=== PATIENT | male | born 1945 | race Caucasian/White ===

== ENCOUNTER → 2018-05-03 | Outpatient (CLI) | payer OTHER ==
[~2018-05-03] MED LIST: ACETAMINOPHEN325 M1 PO; ALLOPURINOL 10100 M1 PO; AMBIEN 10 MG TA10 MG PO; AMIODARONE PO; ANTACID650 MG PO; ASPIRIN325 PO; ATORVASTATIN CA20 MG PO; CELEXA40 MG PO; CENTRUM SILVER1 EAC4 PO; CLORAZEPATE DI7.5 M2; CLOTRIMAZOLE AF30 GM TP; COLACE 100 MG100 MG PO; CORTIZONE 1028 GM TP; COUMADIN 5 MG TA5 M1 PO; DIOVAN320 MG PO; DOXYCYCLINE 10100 MG PO; ENOXAPARIN30 MG/0.3 SQ; FISH OIL300 MG PO; FLOMAX PO; FLOMAX0.4 MG PO; FUROSEMIDE 40 M40 M1 PO; HYDROXYZINE HCL25 M1 PO; K-DUR 20 MEQ T20 MEQ PO; LAMOTRIGINE ODT25 MG PO; LASIX 40 MG TAB40 M2 PO; LASIX 40 MG TAB40 MG PO; LIORESAL 10 MG10 MG PO; LOPRESSOR PO; METHYLPREDNISOLO4 M1 PO; MIRAPEX0.125 MG PO; NORCO 5-325 TA1 EAC1 PO; NORCO 5-325 TA1 EACH PO; PACERONE100 MG PO; POTASSIUM20; POTASSIUM20 PO; PREDNISONE 10 M10 MG PO; PROTONIX40 M1 PO; RANITIDINE 150150 MG PO; SENOKOT-S1 TA1 PO; STOOL SOFTENER1 EAC2 PO; TOPROL XL100 MG PO; VITAMIN D31000 UNIT PO; XANAX 0.5 MG0.5 M1; ZANTAC 150MG T150 MG PO; ZOCOR 20 MG TAB20 M1 PO
[2018-05-03 11:59] LABS: DIRECT BILIRUBIN 0.1 mg/dL (<0.1-0.3); TOTAL BILIRUBIN 0.4 mg/dL (<0.1-1.0); TOTAL PROTEIN 6.4 g/dL (6.4-8.2)
== END ==
LOC: M.LAB 10:53
PROVIDERS: Internal Medicine Cardiovascular Disease
DX: J84.10 Pulmonary fibrosis, unspecified (principal); Z79.899 Other long term (current) drug therapy

== ENCOUNTER → 2018-06-01 | Outpatient (CLI) | payer OTHER ==
--- NOTE | 2018-06-01 17:43 | 2DMMODE ---
[place] [address] 2 D/M-MODE ECHOCARDIOGRAM Name: SHUBHAMSILVIA Room: [facility]#: [id number] Admission: 06/01/18 Attend Phys: Barrera Ramires, Discharge: Date of : 41 Date of Service: 06/01/18 1742 Report #: [id number] THIS REPORT FOR: //name// APPROVED REPORT Study performed: 06/01/2018 09:47:12 EXAM: Comprehensive 2D, Doppler, and color-flow Echocardiogram Patient Location: Out-Patient Status: routine BSA: 2.52 HR: 68 bpm BP: 180/70 mmHg Other Information Study Quality: Fair Indications Cardiomyopathy 2D Dimensions IVSd: 13.93 (7-11mm) LVOT Diam: 20.11 (18-24mm) LVDd: 51.99 mm PWd: 12.37 (7-11mm) Ascending Ao: 26.62 (22-36mm) LVDs: 28.73 (25-40mm) Aortic Root: 27.55 mm Volumes Left Atrial Volume (Systole) LA ESV Index: 29.90 mL/m2 Aortic Valve AoV Peak Amauri.: 1.61 m/s AO Peak Gr.: 10.31 mmHg LVOT Max P.29 mmHg AO Mean Gr.: 5.69 mmHg LVOT Mean P.80 mmHg LVOT Max V: 1.25 m/s AO V2 VTI: 37.08 cm LVOT Mean V: 0.76 m/s DAVID (VTI): 2.61 cm2 LVOT V1 VTI: 30.47 cm Mitral Valve MV Peak Gr.: 6.30 mmHg MV Mean Gr.: 1.81 mmHg E/A Ratio: 2.34 MV Decel. Time: 221.70 ms MV E Max Amauri.: 1.18 m/[place] [address] 2 D/M-MODE ECHOCARDIOGRAM Name: SILVIA JALLOH Room: [facility]#: [id number] Admission: 06/01/18 Attend Phys: Barrera Ramires, Discharge: Date of : 41 Date of Service: 06/01/18 1742 Report #: [id number] MV PHT: 64.29 ms MVA (PHT): 3.42 cm2 TDI E/Lateral E': 11.80 E/Medial E': 13.11 Medial E' Amauri.: 0.09 m/s Lateral E' Amauri.: 0.10 m/s Pulmonary Valve PV Peak Amauri.: 1.17 m/s PV Peak Gr.: 5.51 mmHg Tricuspid Valve RAP Estimate: 5.00 mmHg TR Peak Gr.: 38.35 mmHg RVSP: 43.35 mmHg PA Pressure: 43.35 mmHg Left Ventricle The left ventricle is normal size. There is normal LV segmental wall motion. Mild concentric left ventricular hypertrophy. Left ventricular systolic function is normal. LVEF is 55-60%. Transmitral Doppler flow pattern suggests restrictive physiology. Right Ventricle The right ventricle is normal size. The right ventricular systolic function is normal. Atria Left atrium is moderately dilated. The right atrium size is normal. Aortic Valve The Aortic valve is sclerotic. No aortic regurgitation is present. There is no aortic valvular stenosis. Mitral Valve There is mild mitral annular calcification. Mild mitral regurgitation. No evidence of mitral valve stenosis. Tricuspid Valve The tricuspid valve is normal in structure. Mild to moderate tricuspid regurgitation. Moderate pulmonary hypertension. Pulmonic Valve The pulmonary valve is normal in structure. There is no pulmonic [place] [address] 2 D/M-MODE ECHOCARDIOGRAM Name: SILVIA JALLOH Room: [facility]#: [id number] Admission: 06/01/18 Attend Phys: Barrera Ramires, Discharge: Date of : 41 Date of Service: 06/01/18 1742 Report #: [id number] Great Vessels The aortic root is normal in size. IVC is not well visualized. Pericardium There is no pericardial effusion. <Conclusion> The left ventricle is normal size. Mild concentric left ventricular hypertrophy. Left ventricular systolic function is normal. LVEF is 55-60%. Transmitral Doppler flow pattern suggests restrictive physiology. Left atrium is moderately dilated. The Aortic valve is sclerotic. There is no aortic valvular stenosis. There is mild mitral annular calcification. Mild mitral regurgitation. Mild to moderate tricuspid regurgitation. Moderate pulmonary hypertension. <ELECTRONICALLY SIGNED> By: Barrera Ramires MD, FACC 06/01/181741 41 41 Barrera Ramires MD, FACC /INF
== END ==
LOC: M.CRD 09:43
DX: I08.1 Rheumatic disorders of both mitral and tricuspid valves (principal); I27.20 Pulmonary hypertension, unspecified; I42.8 Other cardiomyopathies

== ENCOUNTER → 2019-01-03 | Outpatient (CLI) | payer OTHER ==
[2019-01-03 11:50] LABS: ALBUMIN 3.2 g/dL (3.4-5.0); DIRECT BILIRUBIN 0.2 mg/dL (<0.1-0.3); TOTAL BILIRUBIN 0.6 mg/dL (<0.1-1.0); TOTAL PROTEIN 6.3 g/dL (6.4-8.2)
== END ==
LOC: M.LAB 10:07
PROVIDERS: Internal Medicine Cardiovascular Disease
DX: J84.10 Pulmonary fibrosis, unspecified (principal); J98.4 Other disorders of lung; Z79.899 Other long term (current) drug therapy; Z88.8 Allergy status to other drugs, medicaments and biological substances; Z91.040 Latex allergy status

== ENCOUNTER → 2019-04-18 | Outpatient (CLI) | payer OTHER | LOC: M.RAD 10:38 | DX: J84.9 Interstitial pulmonary disease, unspecified (principal); J84.10 Pulmonary fibrosis, unspecified; Z79.899 Other long term (current) drug therapy; Z88.8 Allergy status to other drugs, medicaments and biological substances; Z91.040 Latex allergy status ==

== ENCOUNTER 2019-05-11 11:32 | Emergency (ER) | payer OTHER ==
[~2019-05-11] VITALS: Ht 182.9 cm; Wt 136.1 kg
[2019-05-11 14:51] LABS: INFLUENZA A ANTIGEN Negative (Negative); INFLUENZA B ANTIGEN Negative (Negative)
[2019-05-11] MEDS ORDERED: KEFLEX500 M1 PO (15:15)
[2019-05-11] MEDS ORDERED: KEFLEX500 M2 PO (15:18)
[2019-05-11 15:28] VITALS: BP 143/57
== END 2019-05-11 15:29 | disposition home or self-care (01) ==
LOC: M.ERS 11:32
PROVIDERS: Emergency Medicine
DX: J40 Bronchitis, not specified as acute or chronic (principal); I50.9 Heart failure, unspecified; N18.9 Chronic kidney disease, unspecified; Z88.5 Allergy status to narcotic agent; Z99.2 Dependence on renal dialysis

== ENCOUNTER → 2019-06-19 | Outpatient (CLI) | payer OTHER ==
[~2019-06-19] MED LIST changes: +KEFLEX500 M1 PO; +KEFLEX500 M2 PO
--- NOTE | ~2019-06-19 | PF ---
[address] [address] PULMONARY FUNCTION REPORT Name: SILVIA JALLOH Room: [facility]#: [id number] Admission: 06/19/19 Attend Phys: JULIANNE Maradiaga Discharge: Date of : 41 Report #: [id number] THIS REPORT FOR: //name// CC: Byron Cervantes DATE OF SERVICE: 06/26/2019 Forced vital capacity is 2.61, 67% predicted. FEV1 is 1.82, 55% predicted. FEV1/FVC ratio is 70. Post-bronchodilator value of FEV1 is 1.87, yielding 3% improvement. Post-bronchodilator value of forced vital capacity is 2.71, yielding 4% improvement. Total lung capacity is 5.10, 68% predicted. Diffusion capacity is 13.9, 49% predicted. IMPRESSION: Moderate airflow limitation with no significant bronchodilator effect, diminished total lung capacity consistent with possible restrictive lung disease, and diminished diffusion capacity. Further evaluation for possible restrictive lung disease and CT scan if clinically warranted is recommended. By: [id number] Dickinson MD /nathan
== END ==
LOC: M.PUL 09:49
DX: J84.9 Interstitial pulmonary disease, unspecified (principal)

== ENCOUNTER 2019-08-03 16:23 | Inpatient (IN) | payer OTHER ==
[~2019-08-03] VITALS: Ht 182.9 cm; Wt 133.1 kg
[~2019-08-03 16:23] MED LIST changes: -VITAMIN D31000 UNIT PO; +VITAMIN D32000 UNI2 PO
[2019-08-03 16:31] VITALS: BP 173/70
[2019-08-03 17:22] LABS: ABSOLUTE BASOPHILS 0.1 thou/uL (0.0-0.2); ABSOLUTE EOSINOPHILS 0.2 thou/uL (0.0-0.7); ABSOLUTE LYMPHOCYTES 0.5 thou/uL (0.8-5.3); ABSOLUTE MONOCYTES 0.6 thou/uL (0.0-1.2); ABSOLUTE NEUTROPHILS 4.5 thou/uL (1.6-8.1); EOSINOPHILS 3.4 %; HEMATOCRIT 25.9 % (42.0-52.0); HEMOGLOBIN 8.7 gm/dL (14.0-18.0); LYMPHOCYTES 7.9 %; MCH 30.2 pg (26.0-34.0); MCHC 33.7 g/dL (28.0-37.0); MCV 89.4 fL (80.0-100.0); MONOCYTES 10.7 %; MPV 8.4 fl. (7.2-11.1); NUCLEATED RBCS 0 /100WBC; PLATELET COUNT* 206 thou/uL (150-400); RDW-CV 17.7 % (10.5-14.5); WBC 5.9 thou/uL (4.0-11.0)
[2019-08-03 17:41] LABS: INFLUENZA A ANTIGEN Negative (Negative); INFLUENZA B ANTIGEN Negative (Negative)
[2019-08-03 17:45] LABS: CREATININE 2.7 mg/dL (0.6-1.3); POTASSIUM 4.2 mmol/L (3.5-5.1)
[2019-08-03 17:50] LABS: ALBUMIN 2.5 g/dL (3.4-5.0); TOTAL BILIRUBIN 1.1 mg/dL (<0.1-1.0); TOTAL PROTEIN 6.4 g/dL (6.4-8.2)
--- NOTE | 2019-08-03 21:32 | NUR ---
CALLED THE [facility] DEPARTMENT AND SPOKE TO FITO LEYVA, RESEARCH RAKING MACHINE OPERATOR ABOUT PT SILVIA JALLOH AND HIS SYMPTOMS. AT THIS TIME HE DOES NOT QUALIFY TO HAVE THE HEALTH DEPARTMENT RECEIVE HIS TEST RESULTS. HE SCREENED NEGATIVE FOR A FEVER AND THAT DISQUALIFIED HIM.
[2019-08-03 22:10] VITALS: BP 183/64
[2019-08-03 22:15] VITALS: BP 184/84
[2019-08-04 00:15] VITALS: BP 189/77
[2019-08-04] MEDS ORDERED: SODIUM BICARBO650 M3 PO (03:10)
[2019-08-04] MEDS ORDERED: RANITIDINE 150150 M1 PO (03:11)
[2019-08-04] MEDS ORDERED: IRON325 M1 PO (03:11)
[2019-08-04] MEDS ORDERED: COUMADIN7.5 MG PO (03:14)
[2019-08-04 04:00] VITALS: BP 174/66
--- NOTE | 2019-08-04 06:25 | NUR ---
RECEIVED PT FROM ED AT APPROX 2210 PER CART. PT IS AWAKE AND ORIENTED X4. PODIATRIC PHYSICIAN IN PLACE-TRACING SR. BP ELEVATED, SEE CHARTING-HYDRALAZINE GIVEN PER JUL.BP RETAKEN-159/61. PT IS PLACED ON ISOLATION-COVID 19 RESULT PENDING. PT IS ORIENTED ON THE ROOM SET UP AND ON THE USE OF CALL LIGHT. HOURLY ROUNDING DONE FOR SAFETY. CALL LIGHT WITHIN REACH. HIGH FALL PRECAUTIONS IN PLACE. WCTM
[2019-08-04 08:05] VITALS: BP 160/70
--- NOTE | 2019-08-04 10:39 | EKG ---
[place] [address] ELECTROCARDIOGRAM REPORT Name: SILVIA JALLOH Room: [place] [address] ADM IN ..#: [id number] Admission: 08/03/19 Attend Phys: Jasen Hernandez Discharge: Date of : 41 Date of Service: 08/03/19 1710 Report #: [id number] THIS REPORT FOR: //name// [facility] ED Test Date: 2019-08-03 Test Time: 17:10:21 Pat Name: SILVIA JALLOH Department: Room: [facility] Gender: M Benefit Authorizer: KF : [id number] Requested By: Fariha Mcgowan Order Number: [id number] MD: Scooter Bustos Measurements Intervals [place] Rate: 59 P: 51 ME: 180 QRS: 13 QRSD: 95 T: 52 QT: 480 QTc: 476 Interpretive Statements Sinus rhythm low voltage septal infarct, age indeterminate Compared to ECG 08/22/2016 14:47:40 Myocardial infarct finding now present Electronically Signed On 08-04-2019 10:37:45 CDT by Scooter Bustos [email or web address] <ELECTRONICALLY SIGNED> By: Scooter Bustos MD, FACC 08/04/19 1037 1710 1710 Scooter Bustos MD, [facility] /EPI
[2019-08-04 11:33] LABS: % SATURATION 7 % (20-39); IRON 20 ug/dL (50-175)
--- NOTE | 2019-08-04 13:57 | NUR ---
ASSUMED CARE OF PT AT 0730. PT RESTING IN BED WAITING FOR BREAKFAST. A&0X4, DENIES ANY PAIN OR SHORTNESS OF BREATH AT THIS TIME. PT HAS PRODUCTIVE COUGH- NOT OBSERVED. WHEEZES NOTED. ON RA SAT UPPER 90'S. TRACING SR ON THE HAND KNITTER. ON ENHANCED ISOLATION PRECAUTIONS TO RULE OUT ON COVID. PT UP SBA IN ROOM WITH CANE. NEPHROLOGY CONSULT ORDERED TODAY PER DR HAMMOND REGARDING SADIE. EDEMA NOTED TO BILATERAL LE'S. PT GOAL FOR TODAY IS AWAIT LAB RESULTS, MAINTAIN SBP LESS THAN 160 AND NEPHRO CONSULT. AM ASSESSMENT CHARTED. MEDICATIONS PER JUL. PT REPOSITIONS SELF. HOURLY ROUNDING OBSERVED. BED IN LOW POSITION. CALL LIGHT WITHIN REACH. WILL CONTINUE PLAN OF CARE.
[2019-08-04 15:53] VITALS: BP 176/64
--- NOTE | 2019-08-04 16:04 | NUR ---
cm discussed d/c plan w/pt's spouse. pt lives at home w/spouse and daughter and son in law. pt has walker and cane. pt has hx w/[facility]NA and [facility]. pt is not activce, but independent w/adls. pt has good support system from family. cm to cont to follow.
--- NOTE | 2019-08-04 17:57 | NUR ---
NO ACUTE CHANGES THROUGHOUT SHIFT. REFER TO CHARTING, AWAITING COVID RESULTS. NEPHRO CONSULT IN PLACE. PT DENIES ANY PAIN OR SHORTNESS OF BREATH. CONTINUES TO TRACE SR ON THE CONTENT MANAGEMENT SPECIALIST. ON RA SAT UPPER 90'S. UP WITH SBA AND CANE TO BATHROOM. CARDIOLOGY CONSULTED FOR DIASTOLIC HEART FAILURE- LOSARTAN ADDED PER DR CHEN. REFER TO EMAR. IN ENHANCED ISOLATION. MEDICATIONS PER JUL. PT REPOSITIONS SELF. HOURLY ROUNDING OBSERVED. BED IN LOW POSITION. CALL LIGHT WITHIN REACH, WILL CONTINUE PLAN OF CARE.
[2019-08-04] MEDS ORDERED: COZAAR 25 MG TA25 M1 PO (18:24)
[2019-08-04] MEDS ORDERED: VITAMIN D22000 UNIT PO (18:26)
[2019-08-04 19:04] VITALS: BP 153/55
[2019-08-04 20:00] VITALS: BP 157/76
[2019-08-05] VITALS: BP 154/78
[2019-08-05 04:00] VITALS: BP 149/50
[2019-08-05 06:00] LABS: CALCIUM 8.1 mg/dL (8.5-10.1); CREATININE 2.9 mg/dL (0.6-1.3); POTASSIUM 4.1 mmol/L (3.5-5.1)
[2019-08-05 06:02] LABS: INR 1.7; PROTIME 17.1 Seconds (9.20-11.50)
--- NOTE | 2019-08-05 06:38 | NUR ---
ASSUMED PT CARE AT APPROX 1930. PT IS AWAKE AND ORIENTED X4. SAUSAGE MEAT TRIMMER IN PLACE TRACING SR/SB. ASSESSMENT DONE AND CHARTED. NO ACUTE CHANGES OVERNIGHT. CALL LIGHT WITHIN REACH, HOURLY ROUNDING DONE FOR PT SAFETY. FALL PRECAUTIONS IN PLACE.
[2019-08-05 08:00] VITALS: BP 143/48
--- NOTE | 2019-08-05 12:51 | NUR ---
ASSUMED CARE OF PT AT 0730. PT RESTING IN BED, A&OX4, ON RA, SB ON MONITOR. PT IN ENHANCED PRECAUTIONS STILL PENDING COVID RESULTS, PT HAD CHEST XR THIS MORNING SHOWING PNEUMONIA. DR PEREZ NOTIFIED. ORDERS RECEIVED FOR ANTIBIOTICS. REFER TO EMAR. PT DENIES ANY PAIN OR SHORTNESS OF BREATH. PT GETS UP W/ CANE. PT STATES HASN'T HAD BM IN T-3, MEDS GIVEN PER EMAR. NEPHROLOGY SAW PT ORDERS RECEIVED FOR LABS IN AM AND MED CHANGES. AM ASSESSMENT CHARTED, PT REPOSITIONS SELF, HOURLY ROUNDING OBSERVED, BED IN LOW POSITION, CALL LIGHT W/IN REACH, WILL CONTINUE POC.
[2019-08-05 15:30] VITALS: BP 132/52
[2019-08-05 20:00] VITALS: BP 140/46
[2019-08-06] VITALS: BP 142/51
[2019-08-06 04:00] VITALS: BP 149/60
[2019-08-06 04:39] LABS: HEMATOCRIT 25.9 % (42.0-52.0); HEMOGLOBIN 8.6 gm/dL (14.0-18.0); MCHC 33.2 g/dL (28.0-37.0); MCV 90.2 fL (80.0-100.0); RBC 2.88 mil/uL (4.50-6.00); RDW-CV 17.5 % (10.5-14.5); WBC 6.3 thou/uL (4.0-11.0)
[2019-08-06 04:50] LABS: INR 1.7; PROTIME 17.3 Seconds (9.20-11.50)
[2019-08-06 04:55] LABS: ALBUMIN 2.3 g/dL (3.4-5.0); CALCIUM 7.9 mg/dL (8.5-10.1); MAGNESIUM 2.2 mg/dL (1.8-2.4); POTASSIUM 4.1 mmol/L (3.5-5.1); TOTAL BILIRUBIN 0.7 mg/dL (<0.1-1.0); TOTAL PROTEIN 6.1 g/dL (6.4-8.2)
--- NOTE | 2019-08-06 06:14 | NUR ---
ASSUMED PT CARE AT APPROX 1930. PT IS AWAKE AND ORIENTED X4. AIR REDUCTION EQUIPMENT OPERATOR IS TRACING SB,PT REMAINED ASYMPTOMATIC. ASSESSMENT DONE AND CHARTED. NO ACUTE CHANGES OVERNIGHT. CALL LIGHT WITHIN REACH. FALL PREACUTIONS IN PLACE. COVID 19 RESULT STILL PENDING.
[2019-08-06 08:00] VITALS: BP 149/53
--- NOTE | 2019-08-06 08:13 | CON ---
[address] [address] CONSULTATION Name: SILVIA JALLOH Room: [address] IN .R.#: [id number] Admission: 08/03/19 Attend Phys: Kristina Victor Discharge: Date of : 41 Report #: [id number] THIS REPORT FOR: //name// cc: Byron Rojas Chad W. DO ~ THIS REPORT FOR: //name// CC: Byron Hernandez DATE OF SERVICE: 08/05/2019 NEPHROLOGY CONSULTATION REFERRING PHYSICIAN: Dr. Hernandez. REASON FOR NEPHROLOGY CONSULTATION: Chronic kidney disease and the patient came in with shortness of breath. CHIEF COMPLAINT: Shortness of breath. HISTORY OF PRESENT ILLNESS: This is a 74-year-old male with past medical history of chronic kidney disease stage 4. His exact baseline creatinine is not known, but he was on dialysis for only a couple of sessions in 2016 and he follows with Dr. Haile and his creatinine in 2017, has been anywhere between 2.6-3 came in because he was experiencing shortness of breath for a few days with some cough and expectoration. He does take Lasix at home, Dr. Haile stop his potassium according to the patient and he does take losartan at home as well. He does not report any new weight gain. His breathing is better today. He received one dose of Lasix yesterday as well and he is being ruled out for COVID-19 as well. ALLERGIES: OXYCODONE, MORPHINE, AND TAPE. REVIEW OF SYSTEMS: As mentioned in history of present illness, otherwise 10-point review of systems are negative. PAST MEDICAL HISTORY: Includes chronic diastolic congestive heart failure in 05/2018. His ejection fraction was 55-60% with moderate pulmonary hypertension, perforated colon, bilateral knee replacement, low back pain, and peripheral vascular disease. FAMILY HISTORY: Noncontributory. SOCIAL HISTORY: Does not smoke or take alcohol or use illicit drugs. [place] [address] CONSULTATION Name: SILVIA JALLOH Room: [address] IN [facility]#: [id number] Admission: 08/03/19 Attend Phys: Kristina Victor Discharge: Date of : 41 Report #: [id number] HOME MEDICATIONS: Include Lasix 40 mg a day, cholecalciferol, warfarin, ferrous sulfate, ranitidine, sodium bicarbonate, tamsulosin, allopurinol, metoprolol succinate, multivitamin, atorvastatin, also takes losartan. PHYSICAL EXAMINATION: VITAL SIGNS: His blood pressure is 149/50, pulse rate 56, temperature 36.8, respiratory rate is 20 and pulse ox is 95% on room air. GENERAL: He is awake, alert, oriented x 3, no acute distress. HEAD AND EYES: Atraumatic, normocephalic. EARS, NOSE, AND THROAT: Normal ears and nose. Mucous membranes are moist. NECK: No JVD. CHEST: Chest was examining posteriorly and on the right side, there were no crackles or wheezing and on the left side and there were some crackles heard. CARDIOVASCULAR: S1, S2 normal. No murmurs heard. ABDOMEN: Obese, otherwise soft, nondistended, nontender. EXTREMITIES: Lower extremities, there is currently no lower extremity edema. NEUROLOGICAL FUNCTION: Gross neurological function is intact. PSYCHIATRIC: Mood and affect seems to be normal. LABORATORY DATA: WBC 5.9, hemoglobin is 8.7, platelet count is 206. Sodium is 141, potassium is 4.1, creatinine is 0.9, BUN is 47. Other labs were reviewed. IMAGING: Chest x-ray was reviewed. ASSESSMENT: 1. Chronic kidney disease stage 4. Do not have his most recent baseline creatinine, but creatinine in 2017 was between 2.6-3 and creatinine was 2.7 at the time of admission went up slightly to 2.9 after he received IV Lasix, still looks like this is his baseline. He does take losartan and Lasix at home and his potassium has been discontinued by Dr. Haile according to the patient. No need for renal imaging right now and his creatinine continues to get worse. UA has not been checked. 2. The patient was admitted with shortness of breath. COVID-19 being ruled out. He does not seem to be in congestive heart failure. 3. History of chronic diastolic congestive heart failure. 4. History of hypertension. 5. History of hyperlipidemia. 6. Anemia of iron deficiency. Iron saturation is only 7%. PLAN: 1. He will benefit from IV iron again and Hematology and GI workup can be done as outpatient to see if he is losing blood or if he has an iron absorption problem. 2. I have stopped his potassium because he does not take potassium at home. Losartan and Lasix to be continued right now, but if his creatinine continues to [place] [address] [place] [address] CONSULTATION Name: SILVIA JALLOH Room: 227-1 ADM IN M.R.#: [id number] Admission: 08/03/19 Attend Phys: Kristina Victor Discharge: Date of : 41 Report #: [id number] go up, I think he will be henry to stop ARB. 3. May check labs again tomorrow if he is still in-house. Otherwise, he can follow with Dr. Haile as outpatient. 4. Avoid nephrotoxic agents and he should be on a renal diet. Thank you for this consultation. We will continue to follow with you. Would not make any changes to his diuretic regimen right now. Discussed with the patient. <ELECTRONICALLY SIGNED> By: Radha Barrow MD 08/06/19 0813 0805 [id number] Barrow MD /nt
[2019-08-06 12:20] VITALS: BP 143/52
--- NOTE | 2019-08-06 15:20 | NUR ---
ASSUMED CARE OF PT AT 0730. PT RESTING IN BED WAITING FOR BREAKFAST. PT A&0X4, DENIES ANY PAIN OR SHORTNESS OF BREATH AT THIS TIME. TRACING SB ON THE VEHICLE CHECK IN CLERK. RATE IN THE 50'S. ON RA SAT UPPER 90'S WHEEZES NOTED. PT UP AD NICK IN ROOM WITH CANE. PT IN ENHANCED PRECAUTIONS-COVID 19 RESULTS PENDING. PT RECEIVING IV ANTIBIOTICS-REFER TO EMAR. PT GOAL FOR TODAY IS INCREASE ACTIVITY, IS Q 1 HOUR AND UP TO CHAIR FOR MEALS. AM ASSESSMENT CHARTED. MEDICATIONS PER JUL. PT REPOSITIONS SELF. HOURLY ROUNDING OBSERVED. BED IN LOW POSITION. CALL LIGHT WITHIN REACH. WILL CONTINUE PLAN OF CARE.
[2019-08-06 16:50] VITALS: BP 155/59
--- NOTE | 2019-08-06 17:24 | NUR ---
NO ACUTE CHANGES SINCE AM NOTE, PT RESTING IN BED WITH NO COMPLAINTS
[2019-08-06 20:00] VITALS: BP 152/50
[2019-08-07 00:16] VITALS: BP 176/67
[2019-08-07 04:00] VITALS: BP 147/81
[2019-08-07 04:53] LABS: ABSOLUTE BASOPHILS 0.1 thou/uL (0.0-0.2); ABSOLUTE EOSINOPHILS 0.3 thou/uL (0.0-0.7); ABSOLUTE LYMPHOCYTES 1.3 thou/uL (0.8-5.3); ABSOLUTE MONOCYTES 0.8 thou/uL (0.0-1.2); ABSOLUTE NEUTROPHILS 7.3 thou/uL (1.6-8.1); EOSINOPHILS 3.4 %; HEMATOCRIT 28.7 % (42.0-52.0); HEMOGLOBIN 9.3 gm/dL (14.0-18.0); LYMPHOCYTES 12.8 %; MCH 29.4 pg (26.0-34.0); MCHC 32.4 g/dL (28.0-37.0); MCV 90.8 fL (80.0-100.0); MONOCYTES 8.4 %; MPV 8.1 fl. (7.2-11.1); NUCLEATED RBCS 0 /100WBC; PLATELET COUNT* 286 thou/uL (150-400); POLYS 74.4 %; RBC 3.16 mil/uL (4.50-6.00); WBC 9.7 thou/uL (4.0-11.0)
[2019-08-07 05:02] LABS: INR 1.9; PROTIME 18.9 Seconds (9.20-11.50)
[2019-08-07 05:11] LABS: CALCIUM 8.6 mg/dL (8.5-10.1); CREATININE 3.1 mg/dL (0.6-1.3); MAGNESIUM 2.3 mg/dL (1.8-2.4); POTASSIUM 4.3 mmol/L (3.5-5.1)
--- NOTE | 2019-08-07 05:12 | NUR ---
ASSUMED PT CARE AT APPROX 1930. PT IS AWAKE AND ORIENTED X4. SOLUTION DIRECTOR IS TRACING SB/SR,PT REMAINED ASYMPTOMATIC. ASSESSMENT DONE AND CHARTED. PT STILL GETS SHORT OF AIR WITH AMBULATION. NO ACUTE CHANGES OVERNIGHT. CALL LIGHT WITHIN REACH. FALL PREACUTIONS IN PLACE. COVID-19 RESULTS STILL PENDING.
[2019-08-07 07:40] VITALS: BP 147/49
--- NOTE | 2019-08-07 09:59 | NUR ---
Spoke with shama Connelly negative. Anticipate dc to home tomorrow. No needs. Following.
[2019-08-07 12:00] VITALS: BP 139/89
--- NOTE | 2019-08-07 16:37 | NUR ---
ASSUMED CARE OF PATIENT AT APPROX 0730. ALERT AND ORIENTED X4. ASSESSMENT COMPLETED AND CHARTED. VSS ON ROOM AIR. NO COMPLAINTS OF PAIN THIS SHIFT, SOA UPON EXERTION, RECOVERS WITH REST. ANTIBIOTICS INFUSED ORDERED. PATIENT UP AD NICK IN THE ROOM. CALL LIGHT WITHIN REACH. HOURLY ROUNDS COMPLETED. WILL CONTINUE WITH PLAN OF CARE.
--- NOTE | 2019-08-07 16:41 | CON ---
[address] [address] CONSULTATION Name: SHUBHAMSILVIA Yoseph Room: [place] [address] ADM IN M.Reshma.#: [id number] Admission: 08/03/19 Attend Phys: Kristina Victor Discharge: Date of : 41 Report #: [id number] THIS REPORT FOR: //name// cc: Byron Rojas Chad W. DO ~ THIS REPORT FOR: //name// CC: Byron Mancia DATE OF SERVICE: 08/04/2019 CARDIOLOGY CONSULTATION PRIMARY CARE PHYSICIAN: Byron Rojas DO HISTORY OF PRESENT ILLNESS: The patient is a 74-year-old white male who I was asked to see in the hospital today after he complained of being short of breath. The patient has a long history of atrial fibrillation. He apparently was cardioverted years ago by Dr. Montenegro and has been chronically anticoagulated. He has been on amiodarone. Recently, he has been followed by Dr. Ramires in my office. He last saw Dr. Ramires in last October. He was in sinus rhythm at that time. Recently, the patient had increasing shortness of breath. He was coughing and given a course of antibiotics. However, the patient continued to be short of breath and 2 weeks ago, Dr. Ramires recommended that he discontinue the amiodarone. However, because of increasing shortness of breath and cough, the patient was brought to the Emergency Room today and admitted. He denies any chest pain, palpitations, syncope, bleeding. PAST MEDICAL HISTORY: Knee surgery, tonsillectomy, foot surgery, hypertension. MEDICATIONS: Consist of ranitidine, metoprolol, baclofen, Lasix, Flomax, Lipitor, allopurinol, warfarin, losartan. ALLERGIES: HE HAS AN ALLERGY TO OXYCODONE AND MORPHINE. FAMILY HISTORY: Negative for heart disease. SOCIAL HISTORY: He is . He and his live in [place]. Retired from the [employer]. Quit smoking years ago, rarely drinks alcohol. REVIEW OF SYSTEMS: He has a history of sleep apnea, but cannot tolerate CPAP. He is also morbidly obese, standing 6 feet, weighing 300 pounds. He has no history of stroke, asthma, peptic ulcer disease. He has had previous laparotomy following a perforated bowel during the colonoscopy. [place] [address] CONSULTATION Name: SILVIA JALLOH Room: [address]#: [id number] Admission: 08/03/19 Attend Phys: Kristina Victor Discharge: Date of : 41 Report #: [id number] disease. He apparently had temporary dialysis in the past, skin cancer removed. No recent psychiatric illness. No chronic skin condition. PHYSICAL EXAMINATION: GENERAL: A large, elderly male, lying in bed, appeared in no distress. VITAL SIGNS: He had a blood pressure of 160/70, pulse 60. He is afebrile. HEENT: He was anicteric. Conjunctivae pink. Mucous membranes moist. NECK: Veins difficult to assess due to obesity. CHEST: Revealed decreased breath sounds at bases. CARDIOVASCULAR: Irregular rhythm. No significant murmur. ABDOMEN: Obese. EXTREMITIES: Had trace edema. SKIN: Cool and dry. NEUROLOGIC: Nonfocal. RADIOLOGICAL DATA: His ECG on admission showed a sinus rhythm. His workup in the Emergency Room last night included a chest x-ray that showed normal heart size, clear lung pandya. LABORATORY DATA: His workup, sodium 139, potassium 4.2, BUN 49, creatinine 2.7, it was as high as 4.5 in the past. His liver function studies were normal. His BNP 3465. TSH a year ago was 2.1. White blood cell count 5.9, hemoglobin 8.7, it was 9.1 in 2016. IMPRESSION AND RECOMMENDATIONS: 1. Paroxysmal atrial fibrillation. No recent recurrences. The patient currently in sinus rhythm. He was taken off of amiodarone 3 weeks ago because of possible lung toxicity. I would continue chronic anticoagulation with warfarin. His current INR is 2.6. 2. Morbid obesity. 3. Sleep apnea. The patient cannot tolerate CPAP. 4. Hypertension. The patient is on an ARB and beta julio. 5. Hyperlipidemia. The patient is on a statin drug. 6. Bronchitis. <ELECTRONICALLY SIGNED> By: Scooter Bustos MD, FACC 08/07/19 1641 1545 [id number] Bustos MD, FAC /nt
[2019-08-07 17:50] VITALS: BP 150/61
[2019-08-07 20:55] VITALS: BP 175/76
[2019-08-08] VITALS: BP 132/42
[2019-08-08 04:00] VITALS: BP 134/44
--- NOTE | 2019-08-08 05:12 | NUR ---
A&O X4, UP AD NICK, ROOM AIR. SINUS AQUILINO ON MONITOR IN 50'S. COVID NEGATIVE. NO PAIN OR SOB. EDEMA +1 IN LEGS. NO REPORTS OF SOB THIS SHIFT. HE WAS ABLE TO SLEEP ALL SHIFT. PLAN IS TO CONTINUE MEDS, STABILIZE CV. WILL CONTINUE TO MONITOR.
[2019-08-08 06:48] LABS: INR 2.2; PROTIME 22.2 Seconds (9.20-11.50)
[2019-08-08 07:10] VITALS: BP 139/43
[2019-08-08 08:32] LABS: CALCIUM 7.9 mg/dL (8.5-10.1); CREATININE 2.9 mg/dL (0.6-1.3); POTASSIUM 4.1 mmol/L (3.5-5.1)
[2019-08-08] MEDS ORDERED: IRON325 PO (09:50)
[2019-08-08] MEDS ORDERED: LEVAQUIN 500 M500 M3 PO (09:50)
--- NOTE | 2019-08-08 11:15 | NUR ---
INITAL ASSESSMENT COMPLETED CHARTED. VAA. PT DENIES PAIN, SOA, N/V/D. TRACING SB ON MONITOR. NO NEW CONCERNS. REFER TO COMPUTER CHARTING FOR FURTHER DETAILS. HOURLY ROUNDING IN PLACE FOR PT SAFETY. CLWR.
[2019-08-08 12:15] VITALS: BP 139/44
[2019-08-08 16:00] VITALS: BP 142/59
--- NOTE | 2019-08-08 16:40 | 2DMMODE ---
[place] [address] 2 D/M-MODE ECHOCARDIOGRAM Name: SILVIA JALLOH Room: [address] IN Matt#: [id number] Admission: 08/03/19 Attend Phys: Jasen Hernandez Discharge: Date of : 41 Date of Service: 08/08/19 1639 Report #: [id number] THIS REPORT FOR: cc: Byron Rojas Chad W. DO Blick,Scooter James MD [facility] ~ APPROVED REPORT Study performed: 08/08/2019 14:45:49 EXAM: Comprehensive 2D, Doppler, and color-flow Echocardiogram Patient Location: In-Patient Room #: 218 BSA: 2.51 HR: 61 bpm BP: 139/44 mmHg Rhythm: NSR Other Information Study Quality: Good Indications Dyspnea 2D Dimensions IVSd: 11.35 (7-11mm) LVOT Diam: 19.78 (18-24mm) LVDd: 58.41 mm PWd: 9.94 (7-11mm) Ascending Ao: 31.45 (22-36mm) LVDs: 35.42 (25-40mm) Aortic Root: 29.22 mm Volumes Left Atrial Volume (Systole) LA ESV Index: 43.40 mL/m2 Aortic Valve AoV Peak Amauri.: 1.51 m/s AO Peak Gr.: 9.13 mmHg LVOT Max P.79 mmHg AO Mean Gr.: 5.64 mmHg LVOT Mean P.40 mmHg LVOT Max V: 1.30 m/s AO V2 VTI: 37.53 cm LVOT Mean V: 0.85 m/s DAVID (VTI): 2.56 cm2 LVOT V1 VTI: 31.31 [place] [address] 2 D/M-MODE ECHOCARDIOGRAM Name: SILVIA JALLOH Room: [address] IN [facility]#: [id number] Admission: 08/03/19 Attend Phys: Jasen Hernandez Discharge: Date of : 41 Date of Service: 08/08/19 1639 Report #: [id number] Mitral Valve E/A Ratio: 3.66 MV Decel. Time: 169.90 ms MV E Max Amauri.: 1.52 m/s MV PHT: 49.27 ms MVA (PHT): 4.47 cm2 TDI E/Lateral E': 13.82 E/Medial E': 12.67 Medial E' Amauri.: 0.12 m/s Lateral E' Amauri.: 0.11 m/s Pulmonary Valve PV Peak Amauri.: 1.08 m/s PV Peak Gr.: 4.70 mmHg Tricuspid Valve RAP Estimate: 5.00 mmHg TR Peak Gr.: 53.22 mmHg RVSP: 58.00 mmHg PA Pressure: 58.00 mmHg Left Ventricle The left ventricle is normal size. There is normal LV segmental wall motion. There is normal left ventricular wall thickness. Left ventricular systolic function is normal. The left ventricular ejection fraction is within the normal range. LVEF is 55-60%. The left ventricular diastolic function is normal. Right Ventricle The right ventricle is normal size. The right ventricular systolic function is normal. Atria Left atrium is moderately dilated. The right atrium size is normal. Aortic Valve The Aortic valve is sclerotic. No aortic regurgitation is present. There is no aortic valvular stenosis. Mitral Valve There is mitral annular calcification. Mild mitral regurgitation. No evidence of mitral valve stenosis. Tricuspid Valve The tricuspid valve is normal in structure. Mild tricuspid regurgitation. estimated pa pressure 65 [place] [address] 2 D/M-MODE ECHOCARDIOGRAM Name: SILVIA JALLOH Room: [address]#: [id number] Admission: 08/03/19 Attend Phys: Jasen Hernandez Discharge: Date of : 41 Date of Service: 08/08/19 1639 Report #: [id number] Pulmonic Valve The pulmonary valve is normal in structure. Mild pulmonic regurgitation. Great Vessels The aortic root is normal in size. IVC is normal in size and collapses >50% with inspiration. Pericardium There is no pericardial effusion. <Conclusion> LVEF is 55-60%. Left atrium is moderately dilated. The Aortic valve is sclerotic. Mild mitral regurgitation. Mild tricuspid regurgitation. estimated pa pressure 65 mm Hg <ELECTRONICALLY SIGNED> By: Scooter Bustos MD, FACC 08/08/19 1639 1639 1639 Scooter Bustos MD, FACC /INF
== END 2019-08-08 18:00 | disposition home or self-care (01) | DRG 177 ==
LOC: M.ERS 16:23 → M.TBA-ER 19:29 → M.2W 19:29
PROVIDERS: Internal Medicine; Internal Medicine Cardiovascular Disease; Nurse Practitioner; ADMIT Internal Medicine
DX: J15.6 Pneumonia due to other Gram-negative bacteria (principal); I50.43 Acute on chronic combined systolic (congestive) and diastolic (congestive) heart failure; I13.0 Hypertensive heart and chronic kidney disease with heart failure and stage 1 through stage 4 chronic kidney disease, or unspecified chronic kidney disease; N18.4 Chronic kidney disease, stage 4 (severe); N17.9 Acute kidney failure, unspecified; E78.5 Hyperlipidemia, unspecified; D50.9 Iron deficiency anemia, unspecified; I48.0 Paroxysmal atrial fibrillation; E66.01 Morbid (severe) obesity due to excess calories; G47.30 Sleep apnea, unspecified; Z96.653 Presence of artificial knee joint, bilateral; M54.5 Low back pain; J40 Bronchitis, not specified as acute or chronic; I73.9 Peripheral vascular disease, unspecified; Z72.89 Other problems related to lifestyle; Z68.39 Body mass index [BMI] 39.0-39.9, adult; Z79.899 Other long term (current) drug therapy; Z91.09 Other allergy status, other than to drugs and biological substances; Z87.891 Personal history of nicotine dependence; Z79.01 Long term (current) use of anticoagulants; Z88.5 Allergy status to narcotic agent

== ENCOUNTER 2020-12-13 15:24 | Observation (INO) | payer OTHER ==
[~2020-12-13] VITALS: Ht 182.9 cm; Wt 122.5 kg
--- NOTE | ~2020-12-13 | CON ---
[address] [address] CONSULTATION Name: SILVIA JALLOH Room: [address] Beatrice Gutierrez#: [id number] Admission: 12/13/20 Attend Phys: Kristina Victor Discharge: 12/15/20 Date of : 41 Report #: [id number] THIS REPORT FOR: cc: JERI CALLEJAS MD, CHADWICK MD Vasudeva, Amita MD ~ DATE OF CONSULTATION: 12/15/2020 NEPHROLOGY CONSULTATION CONSULTING PHYSICIAN: Clovis Morton MD REASON FOR NEPHROLOGY CONSULTATION: Acute kidney injury on top of chronic kidney disease, stage 4. REASON FOR ADMISSION: The patient was asked to come to the hospital by Dr. Haile, his welfare project manager because of creatinine of 4.7, worse from his baseline. HISTORY OF PRESENT ILLNESS: This is a 75-year-old male with history of chronic kidney disease stage 4. His baseline creatinine is more than 3s, not on dialysis yet, congestive heart failure, peripheral vascular disease, was asked to come to the hospital because his outpatient creatinine was rechecked with Dr. Haile, his welfare project manager on 12/10/2020, was 4.7, which is worse from his baseline. The patient was asymptomatic, he does take Lasix and losartan at home, which were held here in the hospital and he was treated with IV fluids. He has been making good amount of urine and his creatinine has come down to 3.0. He is again asymptomatic this morning. Outpatient plans for AV access were being made. He is interested in home hemodialysis when time for dialysis comes. ALLERGIES: OXYCODONE, MORPHINE, TAPE. REVIEW OF SYSTEMS: As mentioned in history of present illness; otherwise, 10-point review of systems are negative. PAST MEDICAL AND SURGICAL HISTORY: Includes chronic kidney disease stage 4, baseline creatinine 3s, follows with Dr. Haile. Perforated colon, congestive heart failure, bilateral knee replacement, low back pain, peripheral vascular disease and headaches. HOME MEDICATIONS: Include atorvastatin, multivitamins, vitamin D, metoprolol, Coumadin, allopurinol, tamsulosin, sodium bicarbonate, insulin, losartan 25 mg a day, ergocalciferol, baclofen, carvedilol, cimetidine, nifedipine, furosemide 40 mg a day which the patient has been taking 3 times a week. PHYSICAL EXAMINATION: [place] [address] CONSULTATION Name: SILVIA JALLOH Yoseph Room: [address] Beatrice Gutierrez#: [id number] Admission: 12/13/20 Attend Phys: Kristina Victor Discharge: 12/15/20 Date of : 41 Report #: [id number] VITAL SIGNS: His blood pressure is 140/57, respiratory rate was 16, pulse rate was 69, temperature was 37.2. His pulse ox was 100%. He was on room air. GENERAL: The patient is awake, alert, oriented x 3. HEAD AND EYES: Atraumatic and normocephalic. EARS, NOSE AND THROAT: Normal ears and nose. Mucous membranes moist. NECK: No JVD. CHEST: Bilaterally clear to auscultation anteriorly. No crackles or wheezing. CARDIOVASCULAR: S1, S2 normal. No murmurs. ABDOMEN: Soft, nondistended, nontender. LOWER EXTREMITIES: He has no lower extremity edema. NEUROLOGICAL FUNCTION: Grossly intact. PSYCHIATRIC: Mood and affect seem to be normal. LABORATORY DATA: Hemoglobin 9.7. Sodium 143, potassium 4.7. Creatinine is 3.0, down from 4.6 on admission. Other labs reviewed. IMAGING: No imaging to be reviewed. ASSESSMENT: 1. Acute kidney injury on chronic kidney disease stage 4, baseline creatinine is around 3. Creatinine was 4.6 on admission. After holding Lasix and losartan with IV fluids, creatinine is down to 3.0. UA showed 2+ protein. Renal ultrasound has not been checked yet and there is no need to check it. I will cancel the order. 2. Hypertensive nephropathy, history of focal segmental glomerulosclerosis on biopsy in 2016, follows with Dr. Haile. Chronic kidney disease stage 4, as mentioned above. 3. History of peripheral vascular disease, asymptomatic from that standpoint. 4. History of congestive heart failure, not in exacerbation. Ejection fraction is not known. 5. Hypertension. Blood pressure seems to be in the range. PLAN: 1. Please stop his IV fluids now. Keep losartan and Lasix on hold. 2. The patient was explained that if he starts gaining more than 2 pounds in a day, he may need to start taking the Lasix again, has an appointment to see Dr. Haile this week. 3. Please work on discharging him today because there is no reason for him to be in the hospital. There is no acute need for dialysis right now. [address] [address] CONSULTATION Name: SILVIA JALLOH Room: [address] Beatrice Gutierrez#: [id number] Admission: 12/13/20 Attend Phys: Kristina Victor Discharge: 12/15/20 Date of : 41 Report #: [id number] Discussed with the patient and the patient's nurse in detail. By: 0730 Perlita Barrow MD /nathan
[~2020-12-13 15:24] MED LIST changes: +COUMADIN7.5 MG PO; +COZAAR 25 MG TA25 M1 PO; +IRON325 M1 PO; +IRON325 PO; +LEVAQUIN 500 M500 M3 PO; +RANITIDINE 150150 M1 PO; +SODIUM BICARBO650 M3 PO; +VITAMIN D22000 UNIT PO
[2020-12-13 15:45] VITALS: BP 128/64
[2020-12-13] MEDS ORDERED: CIMETIDINE300 MG PO (15:50)
[2020-12-13] MEDS ORDERED: CARVEDILOL25 MG PO (15:50)
[2020-12-13] MEDS ORDERED: FUROSEMIDE 40 M40 MG PO (15:51)
[2020-12-13] MEDS ORDERED: NIFEDIPINE ER30 M1 PO (15:51)
[2020-12-13 18:52] LABS: ABSOLUTE BASOPHILS 0.1 thou/uL (0.0-0.2); ABSOLUTE EOSINOPHILS 0.3 thou/uL (0.0-0.7); ABSOLUTE LYMPHOCYTES 1.2 thou/uL (0.8-5.3); ABSOLUTE MONOCYTES 0.6 thou/uL (0.0-1.2); ABSOLUTE NEUTROPHILS 6.1 thou/uL (1.6-8.1); BASOPHILS 1.4 %; EOSINOPHILS 3.2 %; HEMATOCRIT 32.8 % (42.0-52.0); HEMOGLOBIN 11.4 gm/dL (14.0-18.0); LYMPHOCYTES 14.7 %; MCH 32.3 pg (26.0-34.0); MCHC 34.7 g/dL (28.0-37.0); MONOCYTES 7.1 %; MPV 7.6 fl. (7.2-11.1); NUCLEATED RBCS 0 /100WBC; PLATELET COUNT* 227 thou/uL (150-400); POLYS 73.6 %; RBC 3.53 mil/uL (4.50-6.00); RDW-CV 14.6 % (10.5-14.5); WBC 8.3 thou/uL (4.0-11.0)
[2020-12-13 19:00] LABS: INR 2.1; PROTIME 21.6 Seconds (9.20-11.50)
[2020-12-13 19:04] LABS: CALCIUM 8.6 mg/dL (8.5-10.1); CREATININE 4.6 mg/dL (0.6-1.3); POTASSIUM 4.9 mmol/L (3.5-5.1)
[2020-12-13 19:09] LABS: ALBUMIN 3.7 g/dL (3.4-5.0); TOTAL BILIRUBIN 0.6 mg/dL (<0.1-1.0); TOTAL PROTEIN 7.6 g/dL (6.4-8.2)
[2020-12-13 20:39] LABS: URINE BILIRUBIN NEGATIVE (Negative); URINE BLOOD NEGATIVE (Negative); URINE COLOR YELLOW; URINE GLUCOSE-RANDOM NEGATIVE (Negative); URINE KETONES NEGATIVE (Negative); URINE LEUKOCYTES-REFLEX TRACE (Negative); URINE NITRITE-REFLEX NEGATIVE (Negative); URINE PROTEIN 2+ (Negative); URINE SPECIFIC GRAVITY 1.015 (1.005-1.030); URINE UROBILINOGEN 0.2 E.U./dl (0.2-1.0)
[2020-12-13 20:50] LABS: URINE CLARITY HAZY
[2020-12-13 21:09] LABS: BACTERIA-REFLEX None Seen /HPF (None Seen); CASTS None Seen /LPF (None Seen); MUCUS 0-3 Light strn/LPF (None Seen); SQUAMOUS 0-3 Few /LPF (0-3); URINE RBC None Seen /HPF (0-2); URINE WBC-REFLEX 0-5 Rare /HPF (0-5)
[2020-12-13 21:10] LABS: CRYSTALS None Seen /LPF (None Seen)
[2020-12-13 21:51] VITALS: BP 141/54
[2020-12-14] VITALS: BP 138/58
--- NOTE | 2020-12-14 04:58 | NUR ---
PT ARRIVE FROM THE ER AROUND 2200. A&O X 4. VSS ON RA. NO C/O PAIN, UP WITH CANE AND SBA. IVF INFUISING. CALL LIGHT WITHIN REACH. WILL OCNTINUE TO MONITOR.
[2020-12-14 08:00] VITALS: BP 150/60
[2020-12-14 15:41] LABS: CALCIUM 8.1 mg/dL (8.5-10.1); POTASSIUM 4.8 mmol/L (3.5-5.1)
[2020-12-14 15:42] LABS: CREATININE 3.5 mg/dL (0.6-1.3)
[2020-12-14 16:00] VITALS: BP 156/67
--- NOTE | 2020-12-14 19:36 | NUR ---
PT PROGRESSING TOWARDS DC GOALS. PT CREATININE WAS DOWN THIS AFTERNOON TO 3.5 FROM 4.6. PT HAS IV FLUIDS INFUSING THROUGH LEFT HAND IV. WILL CONTINUE TO MONITOR PLAN OF CARE. VSS AFEBRILE.
[2020-12-14 21:40] VITALS: BP 140/57
[2020-12-15 04:54] LABS: HEMATOCRIT 28.3 % (42.0-52.0); HEMOGLOBIN 9.7 gm/dL (14.0-18.0); MCH 32.3 pg (26.0-34.0); MCHC 34.5 g/dL (28.0-37.0); MCV 93.7 fL (80.0-100.0); MPV 7.5 fl. (7.2-11.1); RBC 3.02 mil/uL (4.50-6.00); RDW-CV 14.9 % (10.5-14.5); WBC 6.8 thou/uL (4.0-11.0)
[2020-12-15 05:11] LABS: CALCIUM 8.1 mg/dL (8.5-10.1); POTASSIUM 4.7 mmol/L (3.5-5.1)
--- NOTE | 2020-12-15 05:21 | NUR ---
PT AO X4 HERE WITH ARF, IVF PER ORDER, PT AMBULATING TO TOILET WITH CANE AND STANDBY. HE SLEPT SOUNDLY THROUGHOUT THE NIGHT, HE IS NPO FOR RENAL US THIS AM. PT IS STRICT I&O. VSS, CALL LIGHT WITHIN REACH,
[2020-12-15 08:45] VITALS: BP 136/62
[2020-12-15 11:53] VITALS: BP 136/62
== END 2020-12-15 12:15 | disposition home or self-care (01) ==
LOC: M.ERS 15:24 → M.TBA-ER 19:25 → M.3W 22:00
PROVIDERS: Family Medicine; Physician Assistant; ADMIT Internal Medicine; ATTEND Internal Medicine
DX: I13.0 Hypertensive heart and chronic kidney disease with heart failure and stage 1 through stage 4 chronic kidney disease, or unspecified chronic kidney disease (principal); N18.30 Chronic kidney disease, stage 3 unspecified; I50.43 Acute on chronic combined systolic (congestive) and diastolic (congestive) heart failure; Z20.822 Contact with and (suspected) exposure to COVID-19; I73.9 Peripheral vascular disease, unspecified; R60.0 Localized edema; Z79.899 Other long term (current) drug therapy; Z79.01 Long term (current) use of anticoagulants; Z88.5 Allergy status to narcotic agent; Z91.048 Other nonmedicinal substance allergy status

== ENCOUNTER → 2021-03-21 | Outpatient (CLI) | payer OTHER ==
[~2021-03-21] MED LIST changes: +CARVEDILOL25 MG PO; +CIMETIDINE300 MG PO; +FUROSEMIDE 40 M40 MG PO; +NIFEDIPINE ER30 M1 PO
[2021-03-21 16:35] LABS: ABSOLUTE BASOPHILS 0.1 thou/uL (0.0-0.2); ABSOLUTE EOSINOPHILS 0.2 thou/uL (0.0-0.7); ABSOLUTE LYMPHOCYTES 0.9 thou/uL (0.8-5.3); ABSOLUTE MONOCYTES 0.5 thou/uL (0.0-1.2); ABSOLUTE NEUTROPHILS 6.5 thou/uL (1.6-8.1); BASOPHILS 0.7 %; HEMATOCRIT 34.2 % (42.0-52.0); HEMOGLOBIN 11.3 gm/dL (14.0-18.0); LYMPHOCYTES 10.9 %; MCH 30.7 pg (26.0-34.0); MCHC 33.1 g/dL (28.0-37.0); MCV 92.9 fL (80.0-100.0); MONOCYTES 5.9 %; NUCLEATED RBCS 0 /100WBC; PLATELET COUNT* 218 thou/uL (150-400); POLYS 80.5 %; RBC 3.68 mil/uL (4.50-6.00); RDW-CV 17.9 % (10.5-14.5); WBC 8.1 thou/uL (4.0-11.0)
[2021-03-21 16:40] LABS: INR 3.2; PROTIME 31.6 Seconds (9.20-11.50)
[2021-03-21 16:44] LABS: ALBUMIN 3.2 g/dL (3.4-5.0); CREATININE 4.6 mg/dL (0.6-1.3); POTASSIUM 4.9 mmol/L (3.5-5.1); TOTAL BILIRUBIN 0.8 mg/dL (<0.1-1.0); TOTAL PROTEIN 7.3 g/dL (6.4-8.2)
== END ==
LOC: M.LAB 15:59
PROVIDERS: ATTEND Nurse Practitioner
DX: I50.32 Chronic diastolic (congestive) heart failure (principal); Z79.01 Long term (current) use of anticoagulants; Z79.899 Other long term (current) drug therapy

== ENCOUNTER → 2021-03-25 | Outpatient (CLI) | payer OTHER ==
[~2021-03-25] MED LIST changes: +ELIQUIS5 MG PO; +FUROSEMIDE 20 M20 MG PO; +JANTOVEN5 MG PO; +JANTOVEN7.5 MG PO; +PACERONE200 MG PO
--- NOTE | ~2021-03-25 | CARD ---
[address] [address] CARDIAC CATH REPORT Name: SILVIA JALLOH Room: [facility]#: [id number] Admission: 03/25/21 Attend Phys: Barrera Ramires MD Discharge: Date of : 41 Report #: [id number] THIS REPORT FOR: cc: CLIF CALLEJAS MD, CHADWICK MD Liston, Michael J. MD FACC ~ cc: Clif Callejas MD DATE OF SERVICE: 03/25/2021 CARDIAC PROCEDURE PROCEDURE: DC cardioversion. INDICATION: Persistent atrial fibrillation. PROCEDURE DESCRIPTION: After informed consent was obtained, the patient was brought to the cardiac holding area. The patient was given 4 mg of Versed and 75 mcg of fentanyl for conscious sedation. Once the patient was adequately sedated, he was cardioverted from atrial fibrillation to normal sinus rhythm with a single biphasic shock of 300 joules. The patient tolerated the procedure well without complication. The patient was discharged uneventfully. IMPRESSION: 1. Persistent atrial fibrillation. 2. Successful direct current cardioversion to normal sinus rhythm. By: [id number] Ramires MD, FACC /nt
[2021-03-25 12:48] VITALS: BP 128/89
[2021-03-25 12:51] VITALS: BP 138/71
[2021-03-25 12:52] VITALS: BP 138/71
[2021-03-25 12:56] VITALS: BP 108/58
[2021-03-25 13:13] VITALS: BP 120/60
[2021-03-25 13:28] VITALS: BP 122/61
== END | disposition home or self-care (01) ==
LOC: M.CL 09:54
PROVIDERS: ATTEND Internal Medicine Cardiovascular Disease
DX: I48.19 Other persistent atrial fibrillation (principal); I13.0 Hypertensive heart and chronic kidney disease with heart failure and stage 1 through stage 4 chronic kidney disease, or unspecified chronic kidney disease; I50.9 Heart failure, unspecified; N18.30 Chronic kidney disease, stage 3 unspecified; E78.5 Hyperlipidemia, unspecified; I42.9 Cardiomyopathy, unspecified; Z98.890 Other specified postprocedural states; Z79.899 Other long term (current) drug therapy; Z79.01 Long term (current) use of anticoagulants